=== PATIENT | male | born 1995 | race American Indian/Alaskan Native ===

== ENCOUNTER 2017-05-18 16:56 | Emergency (ER) | payer OTHER ==
[~2017-05-18] VITALS: Ht 172.7 cm; Wt 71.7 kg
[2017-05-18 16:56] VITALS: BP 131/88
== END 2017-05-18 17:43 | disposition left against medical advice (07) ==
LOC: ER 17:01
DX: R05 Cough (principal)

== ENCOUNTER 2017-08-15 02:26 | Emergency (ER) | payer OTHER ==
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
[2017-08-15 03:30] VITALS: BP 122/80
== END 2017-08-15 03:53 | disposition home or self-care (01) ==
LOC: ER 02:30
DX: S02.2XXA Fracture of nasal bones, initial encounter for closed fracture (principal); S06.0X0A Concussion without loss of consciousness, initial encounter
CPT/HCPCS: 70450; 70486; 99282

== ENCOUNTER 2017-08-15 12:38 | Emergency (ER) | payer OTHER ==
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
--- NOTE | 2017-08-15 13:54 | RADIOLOGY IMAGING REPORT ---
FACILITY: [facility] PATIENT NAME: Дмитрий Banegas : 1995 MR: [id number] V: [id number] EXAM DATE: ORDERING PHYSICIAN: ERIN HERR TECHNOLOGIST: Location: [facility] [place] Patient: Дмитрий Banegas : 1995 Visit/Account:[id number] Date of Sevice: 08/15/2017 Technique: HAND COMPLETE RIGHT HISTORY: pain with ROM Comparison studies: None FINDINGS: There is no acute fracture. The alignment of the right hand is maintained. Soft tissues are unremarkable. IMPRESSION: 1. No acute osseous process. Report Dictated By: Cameron Masters DO at 08/15/2017 1:49 PM Report E-Signed By: Cameron Masters DO at 08/15/2017 1:50 PM WSN:[id number]
--- NOTE | 2017-08-15 13:56 | RADIOLOGY IMAGING REPORT ---
FACILITY: [facility] - [place] PATIENT NAME: Дмитрий Banegas : 1995 MR: [id number] V: [id number] EXAM DATE: ORDERING PHYSICIAN: ERIN HERR TECHNOLOGIST: Location: [facility] Patient: Дмитрий Banegas : 1995 Visit/Account:[id number] Date of Sevice: 08/15/2017 Technique: LUMBAR SPINE 4 VIEWS HISTORY: pain with ROM COMPARISON: None available FINDINGS: 5 nonrib-bearing lumbar type vertebral bodies are present. There is no acute fracture. Th e vertebral body alignment, heights and intervertebral disc spaces are maintained. Impression: 1. No acute osseous process. Report Dictated By: Cameron Masters DO at 08/15/2017 1:50 PM Report E-Signed By: Cameron Masters DO at 08/15/2017 1:51 PM WSN:[id number]
[2017-08-15 14:00] VITALS: BP 125/76
== END 2017-08-15 14:00 | disposition home or self-care (01) ==
LOC: ER 12:39
DX: S30.0XXA Contusion of lower back and pelvis, initial encounter (principal)
CPT/HCPCS: 72120; 99282

== ENCOUNTER 2017-08-17 13:25 | Emergency (ER) | payer OTHER ==
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
[2017-08-17 13:42] VITALS: BP 132/79
--- NOTE | 2017-08-17 16:46 | EKG ---
FACILITY: [facility] - [place] PATIENT NAME: JOSELIN HASSAN : [id number] MR: [id number] V: [id number] EXAM DATE: ORDERING PHYSICIAN: ARLETH JACOBS TECHNOLOGIST: LESVIA Berman Reason : SYNCOPE Blood Pressure : / mmHG Vent. Rate : 067 BPM Atrial Rate : 067 BPM P-R Int : 156 ms QRS Dur : 088 ms QT Int : 396 ms P-R-T Axes : 031 060 026 degrees QTc Int : 418 ms Normal sinus rhythm T flattening and inversion consistent with inferior ischemia vs normal variant. ST elevation consistent with age appropriate findings No previous ECGs available Confirmed by GERMAN GARRIDO ([id number]) on 08/17/2017 2:16:15 PM Referred By: REYNALDO Confirmed By:GERMAN GARRIDO
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
== END 2017-08-17 14:42 | disposition home or self-care (01) ==
LOC: ER 13:38
DX: S06.0X0A Concussion without loss of consciousness, initial encounter (principal)
CPT/HCPCS: 70450; 93005; 99283

== ENCOUNTER 2017-12-24 17:54 | Emergency (ER) | payer OTHER ==
[2017-12-24 18:11] VITALS: BP 132/94
--- NOTE | 2017-12-24 18:21 | ER Report ---
History and Physical Time Seen By MD: 18:20 Hx. of Stated Complaint: pt reports pain in L shoulder after lifting weights, full rom HPI/ROS CHIEF COMPLAINT: Left shoulder pain HISTORY OF PRESENT ILLNESS: 22-year-old male patient presents to emergency room with complaint of left shoulder pain. Patient states that he has pain to the left shoulder. He states that he was lifting weights this afternoon when the pain started. Patient states he is not having any pain that radiates telmisartan , he denies having any numbness or tingling. Patient states he is not taking any medication for this. He states the symptoms occurred he came here for further evaluation. He denies any shortness of breath, chest pain. Allergies: Coded Allergies: No Known Drug Allergies (Unverified , 08/15/17) Home Meds Active Scripts Ibuprofen (IBUPROFEN) 800 Mg Tablet, 1 TAB PO Q8H Y for PAIN, #21 TAB Prov:ERIN HERR CHERRY SORTER 12/24/17 Past Medical/Surgical History Patient denies any pertinent medical or surgical history. Reviewed Nurses Notes: Yes Constitutional Vital Sign - Last 24 Hours 12/24/17 18:11 Temp 97.9 Pulse 63 Resp 14 B/P (MAP) 132/94 Pulse Ox 96 O2 Delivery Room Air Physical Exam General appearance: Alert no distress. Respiratory: Chest is non tender, lungs are clear to auscultation. Cardiac: Regular rate and rhythm. Musculoskeletal: There is no deformity, there is no bruising. Patient has no palpable abnormality, there is no tenderness upon palpation. Patient had full range of passive mobility. DIFFERENTIAL DIAGNOSIS: After history and physical exam differential diagnosis was considered for contusion, strain, sprain, dislocation, fracture. Medical Decision Making EKG/Imaging Imaging Technique: SHOULDER MIN 2 VIEWS LEFT HISTORY: shoulder pain Comparison studies: None FINDINGS: There is no acute fracture. The alignment of the left shoulder is maintained. Soft tissues are unremarkable. IMPRESSION: 1. No acute osseous process. Report Dictated By: Cameron Masters DO at 12/24/2017 6:52 PM Report E-Signed By: Cameron Masters DO at 12/24/2017 6:53 PM ED Course/Re-evaluation ED Course Patient is admitted and examined, history and physical were obtained. Differential diagnoses were considered. On examination patient has tenderness to palpation of the left shoulder. There is no abnormality, there is no deformity. X-rays done of left shoulder which was negative. I discussed findings with the patient. Patient was placed in a sling. He is without for the next 2-3 days. He is to ice his shoulder limit activity by pain. Patient was given a prescription for ibuprofen 800 mg one tab by mouth 3 times a day. He is return to emergency room if condition worsens. He is to follow-up with his primary care provider if pain persists. Patient did request to have an MRI of the shoulder done. At this time I believe that this injury does not necessitate an MRI. I told him that I felt that we should treat this conservatively, with rest ice and anti-inflammatories. If there's no improvement patient may need an MRI at that point, which is why like him follow-up with his primary care provider. Patient verbalized understanding and agreement with plan. Decision to Disposition Date: Dec 24, 2017 Decision to Disposition Time: 18:56 Depart Departure Latest Vital Signs Vital Signs Date Time Temp Pulse Resp B/P (MAP) Pulse Ox O2 Delivery O2 Flow Rate FiO2 12/24/17 18:11 97.9 63 14 132/94 96 Room Air Impression: Primary Impression: Left shoulder strain Condition: Improved Disposition: HOME OR SELF-CARE New Scripts Ibuprofen (IBUPROFEN) 800 Mg Tablet 1 TAB PO Q8H Y for PAIN, #21 TAB Prov: ERIN HERR 12/24/17 Patient Instructions: Shoulder Sprain (ED) Additional Instructions: Ice shoulder 2-3 times a day for 10-15 minutes. Limit activity by pain. With a sling 23 out of 24 hours a day for the next 3 days. After that you may take the sling off. Once the sling is off limit weight lifting by pain. I would encourage you to start off with approximately 50% of which were lifting today. Return to the emergency room if condition worsens. Follow-up through primary care provider if pain persists. Problem Qualifiers Primary Impression: Left shoulder strain Encounter type: initial encounter Qualified Codes: S46.912A - Strain of unspecified muscle, fascia and tendon at shoulder and upper arm level, left arm , initial encounter ERIN HERR Dec 24, 2017 18:20
--- NOTE | 2017-12-24 18:57 | RADIOLOGY IMAGING REPORT ---
FACILITY: [facility] PATIENT NAME: Дмитрий Banegas : 1995 MR: [id number] V: [id number] EXAM DATE: ORDERING PHYSICIAN: ERIN HERR TECHNOLOGIST: Location: [facility] [place] Patient: Дмитрий Banegas : 1995 Visit/Account:[id number] Date of Sevice: 12/24/2017 Technique: SHOULDER MIN 2 VIEWS LEFT HISTORY: shoulder pain Comparison studies: None FINDINGS: There is no acute fracture. The alignment of the left shoulder is maintained. Soft tissues are unremarkable. IMPRESSION: 1. No acute osseous process. Report Dictated By: Cameron Masters DO at 12/24/2017 6:52 PM Report E-Signed By: Cameron Masters DO at 12/24/2017 6:53 PM WSN:[id number]
[2017-12-24] MEDS ORDERED: IBUP800T37 PO (19:06)
== END 2017-12-24 19:10 | disposition home or self-care (01) ==
LOC: ER 18:34
DX: S46.912A Strain of unspecified muscle, fascia and tendon at shoulder and upper arm level, left arm, initial encounter (principal); X50.3XXA Overexertion from repetitive movements, initial encounter
CPT/HCPCS: 73030; 99283; A4565